=== PATIENT | female | born 1975 | race Two or more races ===

== ENCOUNTER 2023-01-22 16:17 | Emergency (ER) | payer OTHER, SELFPAY ==
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
[2023-01-22 16:35] VITALS: BP 126/77; PULSE 76; RESP 18; TEMP 36.6; O2SAT 99; BMI 27.7
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
== END 2023-01-22 19:11 | disposition home or self-care (01) ==
PROVIDERS: Emergency Provider Emergency Medicine
DX: S00.83XA Contusion of other part of head, initial encounter (principal); Y04.0XXA Assault by unarmed brawl or fight, initial encounter; Y93.F9 Activity, other caregiving; Y92.199 Unspecified place in other specified residential institution as the place of occurrence of the external cause; Y99.0 Civilian activity done for income or pay
CPT/HCPCS: 70486; 99282; 99284